=== PATIENT | male | born 1975 | race Caucasian/White ===

== ENCOUNTER 2016-12-27 12:57 | Emergency (ER) | payer OTHER ==
[~2016-12-27] VITALS: Ht 190.5 cm; Wt 90.7 kg
[2016-12-27 13:16] VITALS: BP 157/114
--- NOTE | 2016-12-27 13:54 | NUR ---
Patient ambulated to bed 03.
--- NOTE | 2016-12-27 13:55 | NUR ---
Dr. Hall evaluating patient at bedside.
[2016-12-27] MEDS ORDERED: MORPHINE SULFATE 4 MG/ML SYR IVP ONE (14:00)
[2016-12-27] MEDS ORDERED: ONDANSETRON 4 MG/2 ML VIAL IVP ONE (14:00)
[2016-12-27] MEDS ORDERED: NACL 0.9% 1,000 ML IV ONE (14:00)
--- NOTE | 2016-12-27 14:02 | NUR ---
Patient going to CT via [facility].
--- NOTE | 2016-12-27 14:03 | NUR ---
Phil martin in ED - 12/27/16 at 1403 by SUSAN PT TAKEN TO CT VIA [facility] ACCOMPANIED BY BLOCK MAKING MACHINE OPERATOR.
--- NOTE | 2016-12-27 14:10 | NUR ---
Patient back from CT via [facility].
--- NOTE | 2016-12-27 14:20 | NUR ---
Patient was moved to bed 06 due to the FULL ARREST coming in.
--- NOTE | 2016-12-27 14:30 | NUR ---
PT PRESENTS TO ER W/C/O RLQ PAIN X2 DAYS. HX CROHN'S DISEASE. DENIES V/D; SKIN IS PINK/WARM/DRY; AAOX4 WITH EVEN AND STEADY GAIT; LUNGS CLEAR BL; HR EVEN AND REGULAR; PT DENIES ANY FEVER, CP, SOB, OR COUGH AT THIS TIME; PATIENT STATES PAIN OF 8/10 AT THIS TIME; VSS; PATIENT POSITIONED FOR COMFORT; HOB ELEVATED; BEDRAILS UP X2; BED DOWN. ER MD MADE AWARE OF PT STATUS.
[2016-12-27] MEDS ORDERED: methylPREDNISolone SS 125 MG/2 ML VIAL IVP ONE (15:10)
[2016-12-27 16:15] VITALS: BP 131/81
--- NOTE | 2016-12-27 16:15 | NUR ---
Patient discharged with v/s stable. Written and verbal after care instructions given and explained. Patient alert, oriented and verbalized understanding of instructions. Ambulatory with steady gait. All questions addressed prior to discharge. ID band removed. Patient advised to follow up with PMD. Rx of NORCO, MEDROL given. Patient educated on indication of medication including possible reaction and side effects. Opportunity to ask questions provided and answered.
== END 2016-12-27 16:15 | disposition home or self-care (01) ==
LOC: MED 12:57
DX: K50.90 Crohn's disease, unspecified, without complications (principal)
CPT/HCPCS: 36415; 74176; 80053; 82150; 83690; 85025; 85610; 85730; 96361; 96374; 96375; 99285; J2270; J2405; J2930; J7030

== ENCOUNTER 2017-02-09 12:27 | Emergency (ER) | payer SELFPAY ==
[~2017-02-09] VITALS: Ht 190.5 cm; Wt 93.0 kg
[2017-02-09 12:38] VITALS: BP 150/99
--- NOTE | 2017-02-09 12:43 | NUR ---
DR. LIZAMA AT BEDSIDE
--- NOTE | 2017-02-09 12:44 | NUR ---
PATIENT PRESENTS TO ED WITH DUE TO C/O HEADACHE X2 DAYS. HX CROHN'S DISEASE, MIGRAINES.PT VERBALIZED I FEEL NASEOUS,DENIES V/D, SKIN IS PINK/WARM/DRY; AAOX4 WITH EVEN AND STEADY GAIT; LUNGS CLEAR BL; HR EVEN AND REGULAR; PT DENIES ANY FEVER, CP, SOB, OR COUGH AT THIS TIME; PATIENT STATES PAIN OF 8/10 AT THIS TIME; PATIENT POSITIONED FOR COMFORT; HOB ELEVATED; BEDRAILS UP X2; BED DOWN.
[2017-02-09] MEDS ORDERED: METOCLOPRAMIDE 10 MG/2 ML INJ VIAL IVP ONE (12:45)
[2017-02-09] MEDS ORDERED: diphenhydrAMINE 50 MG/ML VIAL IVP ONE (12:45)
[2017-02-09] MEDS ORDERED: DEXAMETHASONE 10 MG/ML VIAL IVP ONE (12:45)
[2017-02-09] MEDS ORDERED: NACL 0.9% 1,000 ML IV ONE (12:45)
--- NOTE | 2017-02-09 13:19 | NUR ---
PT STILL COMPLAINING OF HEADACHE, NO VOMITTING NOTED, PT ANXIOUS WILL INFORM MD
--- NOTE | 2017-02-09 13:36 | NUR ---
PT MORE CALM BUT STILL IN PAIN,IVF ONGOING WELL TOLERATED.
--- NOTE | 2017-02-09 13:46 | NUR ---
PT SITTING IN BED STILL IN PAIN
[2017-02-09] MEDS ORDERED: MORPHINE SULFATE 4 MG/ML SYR IVP ONE (13:55)
--- NOTE | 2017-02-09 14:22 | NUR ---
DR. LIZAMA AT BEDSIDE
[2017-02-09 14:30] VITALS: BP 125/78
--- NOTE | 2017-02-09 14:31 | NUR ---
Patient discharged with v/s stable. Written and verbal after care instructions given and explained. Patient alert, oriented and verbalized understanding of instructions. Ambulatory with steady gait. All questions addressed prior to discharge. ID band removed. Patient advised to follow up with PMD. Rx of ZOFRAN AND FIORICET given. Patient educated on indication of medication including possible reaction and side effects. Opportunity to ask questions provided and answered. PT AAO, CALM, NO DISTRESS NOTED.
== END 2017-02-09 14:31 | disposition home or self-care (01) ==
LOC: MED 12:27
DX: G43.909 Migraine, unspecified, not intractable, without status migrainosus (principal); F41.9 Anxiety disorder, unspecified
CPT/HCPCS: 96361; 96374; 96375; 99284; J1100; J1200; J2270; J2765; J7030

== ENCOUNTER 2017-03-18 07:48 | Emergency (ER) | payer OTHER ==
[~2017-03-18] VITALS: Ht 190.5 cm; Wt 86.9 kg
[2017-03-18 07:57] VITALS: BP 140/95
--- NOTE | 2017-03-18 07:57 | NUR ---
Patient ambulated to bed 7. DIRECTOR OF PAYROLL evaluating patient at bedside.
--- NOTE | 2017-03-18 08:00 | NUR ---
Dr. Lopez evaluating patient at bedside.
--- NOTE | 2017-03-18 08:14 | NUR ---
41/M c/o right wrist pain x2 days. Pt denies any injury or trauma. 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 No swelling noted. Capillary refill less than 3 seconds. Sensation intact. Full ROM. AOX4, clear speech. VSS.
[2017-03-18 08:19] VITALS: BP 140/95
== END 2017-03-18 08:20 | disposition home or self-care (01) ==
LOC: MED 07:48
DX: M67.431 Ganglion, right wrist (principal)
CPT/HCPCS: 99282

== ENCOUNTER 2017-06-03 09:11 | Emergency (ER) | payer OTHER ==
[~2017-06-03] VITALS: Ht 190.5 cm; Wt 88.9 kg
[2017-06-03 09:22] VITALS: BP 143/95
[2017-06-03] MEDS ORDERED: HYDROCODON-ACETAMINOPHN 10-325 (09:27)
[2017-06-03] MEDS ORDERED: TIZANIDINE HCL 4 MG TABLET (09:27)
--- NOTE | 2017-06-03 09:31 | NUR ---
PT TO BED 5
--- NOTE | 2017-06-03 09:33 | NUR ---
ERMD AT BEDSIDE
--- NOTE | 2017-06-03 09:37 | NUR ---
PATIENT PRESENTS TO ED WITH RLQ PAIN NON RADIATING, HEMATEMESIS AND WATERY STOOLS . PT STATES SKIN IS PINK/WARM/DRY; AAOX4 WITH EVEN AND STEADY GAIT; LUNGS CLEAR BL; HR EVEN AND REGULAR; PT DENIES ANY FEVER, CP, SOB, OR COUGH AT THIS TIME; PATIENT STATES PAIN OF 8/10 AT THIS TIME; VSS; PATIENT POSITIONED FOR COMFORT; HOB ELEVATED; BEDRAILS UP X2; BED DOWN. ER MD MADE AWARE OF PT STATUS.
[2017-06-03] MEDS ORDERED: NACL 0.9% 1,000 ML IV SCH (09:39)
[2017-06-03] MEDS ORDERED: ONDANSETRON 4 MG/2 ML VIAL IVP ONE (09:40)
[2017-06-03] MEDS ORDERED: PANTOPRAZOLE 40 MG INJ VIAL IVP ONE (09:40)
[2017-06-03] MEDS ORDERED: MORPHINE SULFATE 4 MG/ML SYR IVP ONE (09:40)
[2017-06-03 10:08] LABS: BASOPHILS # (AUTO) 0.1 K/uL (0.00-0.22); BASOPHILS % (AUTO) 2.6 % (0.0-2.0); EOSINOPHILS # (AUTO) 0.1 K/uL (0-0.4); EOSINOPHILS % (AUTO) 1.4 % (0.0-4.0); HEMATOCRIT 47.5 % (36-52); HEMOGLOBIN 15.4 g/dL (12.0-18.0); LYMPHOCYTES # (AUTO) 1.1 K/uL (2.0-11.5); LYMPHOCYTES % (AUTO) 24.7 % (20.5-51.1); MEAN CORPUSCULAR HEMOGLOBIN 29 pg (27-31); MEAN CORPUSCULAR HGB CONC 33 g/dL (33-37); MEAN CORPUSCULAR VOLUME 90 fL (80-94); MONOCYTES # (AUTO) 0.5 K/uL (0.8-1.0); MONOCYTES % (AUTO) 10.2 % (1.7-9.3); NEUTROPHILS # (AUTO) 2.6 K/uL (1.8-7.7); NEUTROPHILS % (AUTO) 61.1 % (42.2-75.2); PLATELET COUNT (AUTO) 231 K/uL (140-450); RED BLOOD CELL COUNT(AUTO) 5.26 MIL/uL (4.20-6.10); RED CELL DISTRIBUTION WIDTH 12.6 % (11.6-13.7); WHITE BLOOD COUNT (AUTO) 4.4 K/uL (4.8-10.8)
[2017-06-03 10:15] LABS: ANION GAP 9.7 (8-16); CARBON DIOXIDE 29.2 mmol/L (21-32); CREATININE 1.2 mg/dL (0.7-1.3); POTASSIUM 3.9 mmol/L (3.5-5.1)
--- NOTE | 2017-06-03 10:16 | NUR ---
PT WENT TO CT SCAN ACCOMPANIED BY TECH.
[2017-06-03 10:20] LABS: ALBUMIN 4.2 g/dL (3.4-5.0); TOTAL BILIRUBIN 0.4 mg/dL (0.0-1.0)
[2017-06-03 10:21] LABS: PROTHROMBIN TIME 10.4 secs (10.8-13.4)
--- NOTE | 2017-06-03 10:53 | NUR ---
ASKED PT FOR 3RD TIME IF HE CAN GIVE URINE SPECIMEN;PT STATES HE CANNOT AT THIS MOMENT;
--- NOTE | 2017-06-03 11:05 | NUR ---
PT SLEEPING;NO ACUTE DISTRESS NOTED;WILL CONTINUE TO MONITOR PT.
[2017-06-03] MEDS ORDERED: KETOROLAC 30 MG/ML VIAL IVP ONE (11:25)
--- NOTE | 2017-06-03 11:36 | NUR ---
DR CRUZ AT BEDSIDE.
--- NOTE | 2017-06-03 11:48 | NUR ---
Patient discharged with v/s stable. Written and verbal after care instructions given and explained. Patient alert, oriented and verbalized understanding of instructions. Carried with steady gait. All questions addressed prior to discharge. ID band removed. Patient advised to follow up with PMD. Rx of ZOFRAN given. Patient educated on indication of medication including possible reaction and side effects. Opportunity to ask questions provided and answered.
[2017-06-03 11:49] VITALS: BP 118/86
[2017-06-03 13:22] LABS: APPEARANCE,URINE CLEAR (CLEAR); BILIRUBIN,URINE NEGATIVE (NEGATIVE); BLOOD, URINE NEGATIVE (NEGATIVE); COLOR,URINE YELLOW (YELLOW); LEUKOCYTE ESTERASE ,URINE NEGATIVE (NEGATIVE); NITRITE, URINE NEGATIVE (NEGATIVE); PH,URINE 6.5 (5.0-9.0); UGLUCOSE TRACE (NEGATIVE)
[2017-06-03 13:43] LABS: RBC,URINE 0-5 (RARE) /HPF (0-5); WBC,URINE 0-5 (RARE) /HPF (0-5)
== END 2017-06-03 11:48 | disposition home or self-care (01) ==
LOC: MED 09:11
DX: R10.9 Unspecified abdominal pain (principal); G89.29 Other chronic pain; R03.0 Elevated blood-pressure reading, without diagnosis of hypertension; R11.2 Nausea with vomiting, unspecified; R19.7 Diarrhea, unspecified; K21.9 Gastro-esophageal reflux disease without esophagitis; Z79.899 Other long term (current) drug therapy
CPT/HCPCS: 36415; 74176; 80053; 81001; 83605; 83690; 85025; 85610; 85730; 86886; 86900; 86901; 87040; 96361; 96374; 96375; 99285; C9113; J1885; J2270; J2405; J7030

== ENCOUNTER 2017-09-01 16:38 | Emergency (ER) | payer OTHER ==
[~2017-09-01] VITALS: Ht 190.5 cm; Wt 90.7 kg
[~2017-09-01 16:38] MED LIST: HYDROCODON-ACETAMINOPHN 10-325; TIZANIDINE HCL 4 MG TABLET
[2017-09-01 17:22] VITALS: BP 147/84
--- NOTE | 2017-09-01 20:21 | NUR ---
42/M CAME IN WITH C/O PRODUCTIVE COUGH WITH GREEN SPUTUM AND N/V X 13 DAYS. REPORTS CONGESTION AND FEVERS. ALL LUNG SOUNDS CBTA, 20RR EVEN AND UNLABORED AT THIS TIME WITH NASAL CONGESTION. CURRENTLY AFEBRILE.PMH: CHRONS, H.PYLORI
--- NOTE | 2017-09-01 20:21 | NUR ---
Patient to OF2. RN evaluating patient.
--- NOTE | 2017-09-01 21:05 | NUR ---
DCPatient discharged with v/s stable. Written and verbal after care instructions given and explained. Patient alert, oriented and verbalized understanding of instructions. Ambulatory with steady gait. All questions addressed prior to discharge. ID band removed. Patient advised to follow up with PMD. Rx of CODEINE, IBUPROFEN AND VENTOLIN HFA given. Patient educated on indication of medication including possible reaction and side effects. Opportunity to ask questions provided and answered.
[2017-09-01 21:11] VITALS: BP 134/96
== END 2017-09-01 21:05 | disposition home or self-care (01) ==
LOC: MED 16:38
DX: J40 Bronchitis, not specified as acute or chronic (principal); M79.1 Myalgia; R05 Cough; K21.9 Gastro-esophageal reflux disease without esophagitis; Z79.899 Other long term (current) drug therapy
CPT/HCPCS: 71010; 99283

== ENCOUNTER 2017-09-22 11:24 | Emergency (ER) | payer OTHER ==
[~2017-09-22] VITALS: Ht 190.5 cm; Wt 90.7 kg
[2017-09-22 11:25] VITALS: BP 150/90
[2017-09-22] MEDS ORDERED: predniSONE 20 MG TAB PO ONE (12:15)
[2017-09-22] MEDS ORDERED: ALBUTEROL 0.083% 2.5 MG/3 ML NEBU INH ONE (12:15)
[2017-09-22 13:25] VITALS: BP 132/72
== END 2017-09-22 13:24 | disposition home or self-care (01) ==
LOC: MED 11:24
DX: J20.9 Acute bronchitis, unspecified (principal); B34.9 Viral infection, unspecified; R03.0 Elevated blood-pressure reading, without diagnosis of hypertension; K21.9 Gastro-esophageal reflux disease without esophagitis; Z79.899 Other long term (current) drug therapy
CPT/HCPCS: 71045; 93005; 94640; 99284; J7512; J7613

== ENCOUNTER 2017-11-26 08:32 | Emergency (ER) | payer OTHER ==
[~2017-11-26] VITALS: Ht 190.5 cm; Wt 92.1 kg
[2017-11-26 08:41] VITALS: BP 135/62
--- NOTE | 2017-11-26 08:52 | NUR ---
42/M BIB SELF c/o blurry vision in left eye x 3 days. injury to left eye x 5 days ago. bruising noted to left eyelid. no discharge noted from left eye. hx--crohn's disease. AAOX4 WITH EVEN AND STEADY GAIT; LUNGS CLEAR BL. PATIENT STATES PAIN OF 0/10 AT THIS TIME.
--- NOTE | 2017-11-26 08:55 | NUR ---
Patient being evaluated by DR BERTRAND at [facility].
[2017-11-26] MEDS ORDERED: TETRACAINE HCL/PF 0.5% OPTH 4 ML BTL ONE (08:58)
[2017-11-26] MEDS ORDERED: FLUORESCEIN OPTH STRIP 0.6 MG ONE (09:03)
--- NOTE | 2017-11-26 09:05 | NUR ---
PT AMB TO BED 4
[2017-11-26] MEDS ORDERED: FLUORESCEIN OPTH STRIP 0.6 MG OP ONE (09:15)
[2017-11-26] MEDS ORDERED: TETRACAINE HCL/PF 0.5% OPTH 4 ML BTL OP ONE (09:15)
[2017-11-26 09:44] VITALS: BP 131/82
--- NOTE | 2017-11-26 09:44 | NUR ---
Patient discharged with v/s stable. Written and verbal after care instructions given and explained. Patient verbalized understanding. Ambulatory with steady gait. All questions addressed prior to discharge. Advised to follow up with PMD. PT WAS GIVEN A FEW LOCAL OPTOMOLOGISTS FOR F/U EYE EXAM.
== END 2017-11-26 09:44 | disposition home or self-care (01) ==
LOC: MED 08:32
DX: H53.8 Other visual disturbances (principal); S05.92XD Unspecified injury of left eye and orbit, subsequent encounter; K21.9 Gastro-esophageal reflux disease without esophagitis; Z79.899 Other long term (current) drug therapy; X58.XXXD Exposure to other specified factors, subsequent encounter
CPT/HCPCS: 99283

== ENCOUNTER 2018-01-16 15:36 | Emergency (ER) | payer OTHER ==
[~2018-01-16] VITALS: Ht 190.5 cm; Wt 89.8 kg
[2018-01-16 15:49] VITALS: BP 137/95
[2018-01-16] MEDS ORDERED: NACL 0.9% 1,000 ML IV SCH (16:08)
[2018-01-16] MEDS ORDERED: PROMETHAZINE 25 MG/ML VIAL IM ONE (16:10)
[2018-01-16] MEDS ORDERED: PANTOPRAZOLE 40 MG INJ VIAL IVP ONE (16:10)
[2018-01-16] MEDS ORDERED: ONDANSETRON 4 MG/2 ML VIAL IVP ONE (16:10)
[2018-01-16 16:50] LABS: BASOPHILS % (AUTO) 0.8 % (0.0-2.0); EOSINOPHILS % (AUTO) 0.4 % (0.0-4.0); HEMATOCRIT 44.4 % (36-52); HEMOGLOBIN 15.1 g/dL (12.0-18.0); LYMPHOCYTES # (AUTO) 1.2 K/uL (2.0-11.5); LYMPHOCYTES % (AUTO) 24.3 % (20.5-51.1); MEAN CORPUSCULAR HEMOGLOBIN 30 pg (27-31); MEAN CORPUSCULAR HGB CONC 34 g/dL (33-37); MEAN CORPUSCULAR VOLUME 89.7 fL (80-94); MONOCYTES # (AUTO) 0.3 K/uL (0.8-1.0); MONOCYTES % (AUTO) 5.1 % (1.7-9.3); NEUTROPHILS # (AUTO) 3.4 K/uL (1.8-7.7); NEUTROPHILS % (AUTO) 69.4 % (42.2-75.2); PLATELET COUNT (AUTO) 240 K/uL (140-450); RED BLOOD CELL COUNT(AUTO) 4.95 MIL/uL (4.20-6.10); RED CELL DISTRIBUTION WIDTH 13.7 % (11.6-13.7); WHITE BLOOD COUNT (AUTO) 4.9 K/uL (4.8-10.8)
[2018-01-16 17:03] LABS: ANION GAP 10.4 (8-16); CARBON DIOXIDE 30.1 mmol/L (21-32); CHLORIDE 105 mmol/L (98-107); CREATININE 1.2 mg/dL (0.7-1.3); GFR ARICAN-AMERICAN 86 mL/min (>90); GLUCOSE 105 mg/dL (74-106); POTASSIUM 3.5 mmol/L (3.5-5.1); SODIUM SERUM 142 mmol/L (136-145); UREA NITROGEN, BLOOD 13 mg/dL (7-18)
[2018-01-16 17:09] LABS: ALBUMIN 4.1 g/dL (3.4-5.0); AMYLASE 72 U/L (25-115); ASPARTATE AMINOTRANSFERASE 30 U/L (15-37); LIPASE 145 U/L (73-393); TOTAL BILIRUBIN 0.6 mg/dL (0.0-1.0)
[2018-01-16 17:40] LABS: PROTHROMBIN TIME 10.9 secs (10.8-13.4)
[2018-01-16 17:54] LABS: APPEARANCE,URINE CLEAR (CLEAR); BILIRUBIN,URINE NEGATIVE (NEGATIVE); BLOOD, URINE NEGATIVE (NEGATIVE); COLOR,URINE YELLOW (YELLOW); LEUKOCYTE ESTERASE ,URINE NEGATIVE (NEGATIVE); NITRITE, URINE NEGATIVE (NEGATIVE); PH,URINE 6.5 (5.0-9.0); UGLUCOSE NEGATIVE (NEGATIVE)
[2018-01-16 18:00] LABS: BARBITURATE, URINE NEG. ng/ml (NEG <=200); BENZODIAZEPINE, URINE NEG. ng/mL (NEG <=200); CANNABINOID, URINE NEG. ng/mL (NEG <=50); COCAINE, URINE NEG. ng/mL (NEG <=300); OPIATE, URINE NEG. ng/mL (NEG <=2000); PHENCYCLIDINE SCREEN,URINE NEG. ng/mL (NEG <=25)
[2018-01-16 18:54] VITALS: BP 141/85
== END 2018-01-16 18:56 | disposition left against medical advice (07) ==
LOC: MED 15:36
DX: K92.2 Gastrointestinal hemorrhage, unspecified (principal)
CPT/HCPCS: 36415; 71045; 74176; 80053; 80305; 81003; 82150; 83690; 85025; 85610; 85730; 86886; 86900; 86901; 93005; 96361; 96374; 96375; 99285; C9113; G0482; J2405; J2550; J7030

== ENCOUNTER 2018-02-25 12:22 | Emergency (ER) | payer OTHER ==
[~2018-02-25] VITALS: Ht 188 cm; Wt 82.7 kg
[2018-02-25 12:25] VITALS: BP 134/65
--- NOTE | 2018-02-25 12:29 | NUR ---
Patient ambulated to bed 9. RN evaluating patient at bedside.
--- NOTE | 2018-02-25 12:31 | NUR ---
REPORT GIVEN TO ANDREA PATHAK
--- NOTE | 2018-02-25 12:32 | NUR ---
PATIENT PRESENTS TO ED WITH persistant dry cough, sore throat, pain upon swallowing x2 days . PT STATES . DENIES N/V/D; SKIN IS PINK/WARM/DRY; AAOX4 WITH EVEN AND STEADY GAIT; LUNGS CLEAR BL; HR EVEN AND REGULAR; PT DENIES ANY FEVER, CP, SOB, OR AT THIS TIME; PATIENT STATES PAIN OF 8/10 AT THIS TIME; VSS; PATIENT POSITIONED FOR COMFORT; HOB ELEVATED; BEDRAILS UP X2; BED DOWN. ER MD MADE AWARE OF PT STATUS.
[2018-02-25] MEDS ORDERED: CLINDAMYCIN 600 MG/4 ML VIAL IM ONE (12:55)
[2018-02-25] MEDS ORDERED: DEXAMETHASONE 10 MG/ML VIAL IM ONE (12:55)
[2018-02-25] MEDS ORDERED: ALBUTEROL SULFATE/IPRATROPIU 3 ML SOL IH ONE (12:55)
--- NOTE | 2018-02-25 13:06 | NUR ---
RT AT BEDSIDE
--- NOTE | 2018-02-25 13:32 | NUR ---
Dr. Jones evaluating patient at bedside.
[2018-02-25 14:40] VITALS: BP 128/64
--- NOTE | 2018-02-25 14:40 | NUR ---
Patient discharged with v/s stable. Written and verbal after care instructions given and explained. Patient alert, oriented and verbalized understanding of instructions. Ambulatory with steady gait. All questions addressed prior to discharge. ID band removed. Patient advised to follow up with PMD. Rx of CLINDAMYCIN, PROMETHAZINE DM, AND PREDNISONE given. Patient educated on indication of medication including possible reaction and side effects. Opportunity to ask questions provided and answered.
== END 2018-02-25 14:40 | disposition home or self-care (01) ==
LOC: MED 12:22
DX: J02.9 Acute pharyngitis, unspecified (principal); R09.82 Postnasal drip; K21.9 Gastro-esophageal reflux disease without esophagitis; Z79.899 Other long term (current) drug therapy
CPT/HCPCS: 94640; 96372; 99284; J1100; J3490; J7620

== ENCOUNTER 2018-04-07 15:07 | Emergency (ER) | payer OTHER ==
[~2018-04-07] VITALS: Ht 190.5 cm; Wt 90.7 kg
[2018-04-07 15:25] VITALS: BP 139/90
[2018-04-07] MEDS ORDERED: traMADol 50 MG TAB PO ONE (16:25)
[2018-04-07] MEDS ORDERED: KETOROLAC 60 MG/2 ML VIAL IM ONE (16:25)
[2018-04-07 17:25] VITALS: BP 129/88
== END 2018-04-07 17:25 | disposition home or self-care (01) ==
LOC: MED 15:07
DX: M25.512 Pain in left shoulder (principal); K21.9 Gastro-esophageal reflux disease without esophagitis; X58.XXXA Exposure to other specified factors, initial encounter; Y93.89 Activity, other specified; Y92.89 Other specified places as the place of occurrence of the external cause; Y99.0 Civilian activity done for income or pay
CPT/HCPCS: 72040; 73030; 96372; 99284; J1885

== ENCOUNTER 2018-06-18 14:03 | Emergency (ER) | payer OTHER ==
[~2018-06-18] VITALS: Ht 190.5 cm; Wt 83.5 kg
[2018-06-18 14:35] VITALS: BP 141/112
[2018-06-18] MEDS ORDERED: ALBUTEROL 0.083% 2.5 MG/3 ML NEBU INH ONE (16:10)
[2018-06-18] MEDS ORDERED: predniSONE 20 MG TAB PO ONE (16:10)
[2018-06-18 17:20] VITALS: BP 130/63
== END 2018-06-18 17:19 | disposition home or self-care (01) ==
LOC: MED 14:03
DX: J20.9 Acute bronchitis, unspecified (principal); E03.0 Congenital hypothyroidism with diffuse goiter; K21.9 Gastro-esophageal reflux disease without esophagitis; Z79.899 Other long term (current) drug therapy
CPT/HCPCS: 71045; 94640; 99283; J7512; J7613; Q0092

== ENCOUNTER 2018-12-15 10:17 | Emergency (ER) | payer OTHER ==
[~2018-12-15] VITALS: Ht 190.5 cm; Wt 83.9 kg
--- NOTE | 2018-12-15 10:17 | NUR ---
Patient BIBA ACLS accompanied by Andi GOODWIN, transferred to bed 2. RN evaluating patient at bedside.
[2018-12-15 10:18] VITALS: BP 151/87
[2018-12-15 10:20] VITALS: BP 151/87
--- NOTE | 2018-12-15 10:20 | NUR ---
BIBA. PER WOMEN'S SOCCER COACH,PATIENT ALOC ON SCENE., AWAKE, ALERT,ORIENTED AFTER GIVEN 2 MG NARCAN,PUPILS PINPOINT ON SCENE. PER WOMEN'S SOCCER COACH, PATIENT WITHDREW 1000 DOLLARS FROM [place] BACK BUT NO MONEY SEEN ON THE FIELD. PATIENT STATED HE GOT DROPPED OFF AT THE BANK. FACIAL REDNESS FROM SCRATCHING. DENIES PAIN, DENIES N/V. PT STATES 5/10 TO R HAND, 4TH DIGIT S/P SX. HOB UP. ON LOW BED POSITION, LOCKED. BED SIDE RAILS UP X1. ER MADE AWARE OF PT STATUS.
--- NOTE | 2018-12-15 10:30 | NUR ---
Note lupisemili in EDM - 12/15/18 at 1053 by MED PT STATES HE WANTS TO LEAVE THAT HE IS FINE. PT STATES "I KNOW IT'S STUPID, BUT I [place] [facility] [place] AND I AM FINE." PT TEACHING OF THE IMPORTANCE OF THE PT TO BE EVALUATED BY X3. PT UNDERSTANDS AND VERBALIZES RISKS AND BENEFITS. DR GARCIA MADE AWARE. PT LWOB.
--- NOTE | 2018-12-15 10:30 | NUR ---
AAOX4. AMBULATES WITH STEADY GAIT. PT STATES HE WANTS TO LEAVE THAT HE IS FINE. PT STATES "I KNOW IT'S STUPID, BUT [place] [facility] [place] AND I AM [place]INE." PT TEACHING OF THE IMPORTANCE OF THE PT TO BE EVALUATED BY MD Castillo3. PT UNDERSTANDS AND VERBALIZES RISKS AND BENEFITS. DR GARCIA MADE AWARE. PT LWBS.
== END 2018-12-15 10:37 | disposition left against medical advice (07) ==
LOC: MED 10:17
DX: R41.82 Altered mental status, unspecified (principal); Z53.21 Procedure and treatment not carried out due to patient leaving prior to being seen by health care provider

== ENCOUNTER 2019-12-12 11:37 | Emergency (ER) | payer OTHER ==
[~2019-12-12] VITALS: Ht 190.5 cm; Wt 81.6 kg
[2019-12-12 11:45] VITALS: BP 130/88
[2019-12-12] MEDS ORDERED: MORPHINE SULFATE 4 MG/ML SYR IVP ONE (12:45)
[2019-12-12] MEDS ORDERED: ONDANSETRON 4 MG/2 ML VIAL IVP ONE (12:45)
[2019-12-12 13:16] LABS: BASOPHILS # (AUTO) 0.1 K/uL (0.00-0.22); BASOPHILS % (AUTO) 1.1 % (0.0-2.0); EOSINOPHILS # (AUTO) 0.1 K/uL (0-0.4); EOSINOPHILS % (AUTO) 1.1 % (0.0-4.0); HEMATOCRIT 42.8 % (36-52); HEMOGLOBIN 14.3 g/dL (12.0-18.0); LYMPHOCYTES # (AUTO) 1.1 K/uL (2.0-11.5); MEAN CORPUSCULAR HEMOGLOBIN 30 pg (27-31); MEAN CORPUSCULAR HGB CONC 34 g/dL (33-37); MEAN CORPUSCULAR VOLUME 88.1 fL (80-94); MONOCYTES # (AUTO) 0.3 K/uL (0.8-1.0); MONOCYTES % (AUTO) 5.3 % (1.7-9.3); NEUTROPHILS # (AUTO) 4.3 K/uL (1.8-7.7); NEUTROPHILS % (AUTO) 73.5 % (42.2-75.2); PLATELET COUNT (AUTO) 269 K/uL (140-450); RED BLOOD CELL COUNT(AUTO) 4.86 MIL/uL (4.20-6.10); RED CELL DISTRIBUTION WIDTH 13.4 % (11.6-13.7); WHITE BLOOD COUNT (AUTO) 5.8 K/uL (4.8-10.8)
[2019-12-12 13:17] LABS: APPEARANCE,URINE CLEAR (CLEAR); BILIRUBIN,URINE NEGATIVE (NEGATIVE); BLOOD, URINE NEGATIVE (NEGATIVE); COLOR,URINE YELLOW (YELLOW); LEUKOCYTE ESTERASE ,URINE NEGATIVE (NEGATIVE); NITRITE, URINE NEGATIVE (NEGATIVE); UGLUCOSE NEGATIVE (NEGATIVE)
[2019-12-12 13:36] LABS: ANION GAP 12.2 (8-16); CARBON DIOXIDE 30.8 mmol/L (21-32); CREATININE 1.1 mg/dL (0.6-1.3); TOTAL BILIRUBIN 0.5 mg/dL (0.0-1.0)
[2019-12-12 13:45] VITALS: BP 134/81
== END 2019-12-12 13:46 | disposition home or self-care (01) ==
LOC: MED 11:37
DX: R10.31 Right lower quadrant pain (principal); R11.2 Nausea with vomiting, unspecified; R19.7 Diarrhea, unspecified; K21.9 Gastro-esophageal reflux disease without esophagitis; Z79.899 Other long term (current) drug therapy
CPT/HCPCS: 36415; 74176; 80053; 81003; 83605; 83690; 85025; 87040; 87086; 96374; 96375; 99284; J2270; J2405